=== PATIENT | female | born 1980 | race American Indian/Alaskan Native ===

== ENCOUNTER 2018-01-30 13:53 | Emergency (ER) | payer MEDICAID, OTHER ==
[2018-01-30] MEDS ORDERED: Albuterol-Ipratrop 3 mg / 0.5 (3 ml) UD IH STA (14:07)
[2018-01-30 14:12] VITALS: BMI 29.9
--- NOTE | 2018-01-30 14:51 | ED PDOC ---
Arrival/HPI - General Chief Complaint: Cough, Cold, Congestion Time Seen by Provider: 01/30/18 14:04 Historian: Patient - History of Present Illness Narrative History of Present Illness (Text): 01/30/18 14:49 37yo female with pmhx of Asthma who present with complaint of cough, wheezing, chest tightness and generalized weakness since yesterday. states she has been using her inhaler without relieve. She denies history of admission secondary to Asthma. Not steroid dependent and never intubated. She notes subjective fever. Denies sick contact, travel, diaphoresis, LE edema, any other complaint. Past Medical History - Provider Review Nursing Documentation Reviewed: Yes - Infectious Disease Hx of Infectious Diseases: None - Tetanus Immunization Tetanus Immunization: Unknown - Cardiac Hx Cardiac Disorders: No - Pulmonary Hx Asthma: Yes - Neurological Hx Neurological Disorder: No - HEENT Hx HEENT Disorder: No - Renal Hx Renal Disorder: No - Endocrine/Metabolic Hx Endocrine Disorders: No - Hematological/Oncological Hx Blood Disorders: No - Integumentary Hx Dermatological Disorder: No - Musculoskeletal/Rheumatological Hx Musculoskeletal Disorders: No - Gastrointestinal Hx Gastrointestinal Disorders: No - Genitourinary/Gynecological Other/Comment: ovarian cyst - Psychiatric Hx Depression: No Hx Substance Use: No - Surgical History Hx Cholecystectomy: Yes - Anesthesia Hx Anesthesia: No Hx Anesthesia Reactions: No Hx Malignant Hyperthermia: No - Suicidal Assessment Feels Threatened In Home Enviroment: No Family/Social History - Physician Review Nursing Documentation Reviewed: Yes Family/Social History: Unknown Family HX Smoking Status: Light Smoker < 10 Cigarettes Daily Hx Alcohol Use: Yes Amount per day: 1 Hx Substance Use: No Substance used: mollies Hx Substance Use Treatment: No Allergies/Home Meds Allergies/Adverse Reactions: Allergies SEASONAL Allergy (Uncoded 11/30/17 01:49) Home Medications: Home Meds Medication Instructions Recorded Confirmed Albuterol HFA [Ventolin HFA 90 0.09 mg IH PRN PRN 07/02/13 11/30/17 mcg/actuation (8 g)] Loratadine [Claritin] 10 mg PO DAILY 12/30/16 11/30/17 Review of Systems - Physician Review All systems were reviewed & negative as marked: Yes - Review of Systems Constitutional: Fevers Eyes: Normal ENT: Normal Respiratory: SOB, Cough, Wheezing. absent: Sputum Cardiovascular: Normal Gastrointestinal: Normal Genitourinary Female: Normal Musculoskeletal: Normal Skin: Normal Neurological: Normal Endocrine: Normal Hemo/Lymphatic: Normal Psychiatric: Normal Physical Exam Vital Signs Reviewed: Yes Vital Signs Temp Pulse Resp BP Pulse Ox 01/30/18 18:15 98.1 F 90 16 126/71 99 01/30/18 17:14 94 H 18 126/71 99 01/30/18 15:53 102 H 18 128/76 99 01/30/18 14:12 98.8 F 107 H 16 98 Temperature: Afebrile Blood Pressure: Normal Pulse: Regular Respiratory Rate: Normal Appearance: Positive for: Well-Appearing, Non-Toxic, Comfortable Pain Distress: None Mental Status: Positive for: Alert and Oriented X 3 - Systems Exam Head: Present: Atraumatic, Normocephalic Pupils: Present: PERRL Extroacular Muscles: Present: EOMI Conjunctiva: Present: Normal Mouth: Present: Moist Mucous Membranes Neck: Present: Normal Range of Motion Respiratory/Chest: Present: Good Air Exchange, Wheezes (Diffuse mild expiratory wheeze). No: Respiratory Distress, Accessory Muscle Use, Decreased Breath Sounds, Rales, Retracting, Rhonchi Cardiovascular: Present: Regular Rate and Rhythm, Normal S1, S2. No: Murmurs Abdomen: No: Tenderness, Distention, Peritoneal Signs Back: Present: Normal Inspection Upper Extremity: Present: Normal Inspection. No: Cyanosis, Edema Lower Extremity: Present: Normal Inspection. No: Edema Neurological: Present: GCS=15, CN II-XII Intact, Speech Normal Skin: Present: Warm, Dry, Normal Color. No: Rashes Psychiatric: Present: Alert, Oriented x 3, Normal Insight, Normal Concentration Medical Decision Making ED Course and Treatment: 01/31/18 00:40 PT presented for stated history. she was not in respiratory distress. On evaluation her lung was CTA b/l. She was talking and ambulatory without any distress. She notes that her symptoms improved. CXR NAD she was DC home with prednisone, tessalon and albuterol. Referred to her PMd/ clinic. - RAD Interpretation Radiology Orders: 01/30/18 14:07 CHEST TWO VIEWS (PA/LAT) [RAD] Stat - Medication Orders Current Medication Orders: Discontinued Medications Albuterol/Ipratropium (Duoneb 3 Mg/0.5 Mg (3 Ml) Ud) 3 ml IH Q15M STA Stop: 01/30/18 14:08 Last Admin: 01/30/18 14:42 Dose: 3 ml Ibuprofen (Motrin Tab) 600 mg PO STAT STA Stop: 01/30/18 17:24 Prednisone (Prednisone Tab) 60 mg PO STAT ONE Stop: 01/30/18 14:07 Last Admin: 01/30/18 14:45 Dose: 60 mg Disposition/Present on Arrival - Present on Arrival Any Indicators Present on Arrival: No History of DVT/PE: No History of Uncontrolled Diabetes: No Urinary Catheter: No History of Decub. Ulcer: No History Surgical Site Infection Following: None - Disposition Have Diagnosis and Disposition been Completed?: Yes Diagnosis: Viral syndrome, Asthma Disposition: HOME/ ROUTINE Disposition Time: 17:20 Patient Plan: Discharge Condition: STABLE Discharge Instructions (ExitCare): Asthma, Adult (DC) Additional Instructions: Follow up with your Doctor Return to ED for any new or worsening symptoms Prescriptions: Benzonatate [Tessalon Perle] 100 mg PO TID #30 capsule Ibuprofen [Motrin Tab] 600 mg PO Q6 #15 tab Prednisone 50 mg PO DAILY #4 tab Referrals: Brissa Rucker MD [Primary Care Provider] - Follow up with primary Forms: [employer] (Azeri)
[2018-01-30 15:54] VITALS: O2SAT 99
--- NOTE | 2018-01-30 17:05 | RAD ---
HISTORY: Cough. COMPARISON: No prior. TECHNIQUE: Chest PA and lateral FINDINGS: LUNGS: No active pulmonary disease. PLEURA: No significant pleural effusion identified. No pneumothorax apparent. CARDIOVASCULAR: Normal. OSSEOUS STRUCTURES: No significant abnormalities. VISUALIZED UPPER ABDOMEN: Normal. OTHER FINDINGS: None. IMPRESSION: No active disease.
[2018-01-30 17:15] VITALS: BP 126/71
[2018-01-30 18:28] VITALS: PULSE 90; RESP 16; TEMP 98.1
== END 2018-01-30 18:15 | disposition home or self-care (01) ==
LOC: ED 13:53
DX: J45.909 Unspecified asthma, uncomplicated (principal); B34.9 Viral infection, unspecified; F17.210 Nicotine dependence, cigarettes, uncomplicated